=== PATIENT | male | born 1975 | race Hispanic/Latino ===

== ENCOUNTER 2017-07-15 06:08 | Day surgery (SDC) | payer OTHER ==
[2017-07-15] MEDS ORDERED: WATER FOR IRRIG STERILE IR ONE (07:11)
[2017-07-15] MEDS ORDERED: NACL 0.9% 1000 ML 1,000 ML ONE (07:30)
[2017-07-15] MEDS ORDERED: DIPRIVAN 10 MG/ML IV ONE (07:39)
--- NOTE | 2017-07-15 08:06 | Discharge Summary ---
Providers - Providers Date of discharge: 07/15/17 Attending physician: JONI BUCKLEY Primary care physician: ANDREA SEPULVEDA Hospitalization Condition: Good Procedures: egd Disposition: - TO HOME OR SELFCARE Core Measure Documentation - Palliative Care Palliative Care/ Comfort Measures: Not Applicable - Core Measures Any of the following diagnoses?: none Exam - Physical Exam Narrative exam: unchanged from pre-op exam - Constitutional Vitals: Temp Pulse Resp BP Pulse Ox 98.5 F 65 14 186/68 97 07/15/17 07:27 07/15/17 07:27 07/15/17 07:27 07/15/17 07:27 07/15/17 07:27 Plan Activity: no restrictions Weight Bearing Status: Full Weight Bearing Diet: regular Follow up with: ANDREA SEPULVEDA MD [Primary Care Provider] - 7 Days
--- NOTE | 2017-07-15 08:07 | Operative Report ---
Operative Report Operative Report: OPERATIVE REPORT - EGD DATE 07/15/17 SURGERY: Upper endoscopy. SURGEON: Petar Gonzalez M.D. PRE OP DX: dyspepsia POST OP DX: hiatal hernia TYPE OF ANESTHESIA: MAC. ESTIMATED BLOOD LOSS: None. COMPLICATIONS: None. SPECIMENS REMOVED: None. FINDINGS: 1. Small hiatal hernia. 2. Otherwise, normal esophagus, stomach and first portion of duodenum. INDICATIONS:INDICATION FOR PROCEDURE: Patient is a 41-year-old male with a long history of morbid obesity. he is planned to have a weight loss procedure and is here for preoperative planning EGD. we are looking for any abnormal anatomy or pathology that may prohibit or delay his procedure. PROCEDURE DETAILS: After consent was reviewed, patient was taken back to the operating room where patient was placed in the left lateral decubitus position and a bite block was placed in the mouth. After a time-out was called, MAC anesthesia was initiated. I then passed the endoscope into her oropharynx, into her esophagus, visualized the entire esophagus, which was all within normal limits. I then visualized the stomach and the first portion of the duodenum and there were no abnormalities I could clearly visualize. I then retroflexed the scope in the stomach and visualized the hiatus and I could see a small hiatal hernia. I then desufflated the stomach and removed the endoscope. Patient tolerated procedure well and was transferred to recovery room in good and stable condition.
--- NOTE | 2017-07-15 08:23 | Anesthesia Day of Surgery ---
Anesthesia Day of Surgery - Day of Surgery Patient Examined: Yes Patient H&P Reviewed: Yes Patient is NPO: Yes
--- NOTE | 2017-07-15 08:23 | Anesthesia Consultation ---
Anesthesia Consult and Med Hx Date of service: 07/15/17 - Airway Anesthetic Teeth Evaluation: Good ROM Head & Neck: Adequate Mental/Hyoid Distance: Adequate Mallampati Class: Class I Intubation Access Assessment: Good - Pulmonary Exam CTA: Yes - Cardiac Exam Cardiac Exam: RRR - Pre-Operative Health Status ASA Pre-Surgery Classification: ASA3 Proposed Anesthetic Plan: MAC - Pulmonary Hx Asthma: Yes (childhood, no issues in 13+ years) Hx Sleep Apnea: Yes (CPAP) - Cardiovascular System Hx Hypertension: Yes (No meds) - Gastrointestinal Hx Gastroesophageal Reflux Disease: Yes (with spicy food) - Other Systems Hx Alcohol Use: Yes (socially,2-3 drinks a week)
[2017-07-15 08:30] VITALS: BP 127/70
--- NOTE | 2017-07-15 08:37 | Post Anesthesia Evaluation ---
- Post Anesthesia Evaluation Patient Participated: Yes Airway Patent: Yes Stable Respiratory Function: Yes Nausea/Vomiting: No Temp > 96.8F: Yes Pain Manageable: Yes Adequeate Hydration: Yes Anesthesia Complications: No Block Receding Appropriately: Not Applicable Patient on Ventilator: No
== END 2017-07-15 06:09 | disposition home or self-care (01) ==
LOC: GIO 06:08
PROVIDERS: ATTEND Surgery
DX: K30 Functional dyspepsia (principal); K44.9 Diaphragmatic hernia without obstruction or gangrene; E66.01 Morbid (severe) obesity due to excess calories; I10 Essential (primary) hypertension; Z68.43 Body mass index [BMI] 50.0-59.9, adult; J45.909 Unspecified asthma, uncomplicated; K21.9 Gastro-esophageal reflux disease without esophagitis; G47.33 Obstructive sleep apnea (adult) (pediatric); Z88.0 Allergy status to penicillin
CPT/HCPCS: 43235; J2704; J7030